=== PATIENT | male | born 1935 | race Caucasian/White ===

== ENCOUNTER → 2017-04-21 | Outpatient (CLI) | payer MEDICARE, OTHER ==
--- NOTE | 2017-04-22 10:39 | RADIOLOGY REPORT (SQ) ---
EXAM DESCRIPTION: PET CT LIMITED COMPLETED DATE/TIME: 04/21/2017 7:12 pm REASON FOR STUDY: SOLITARY PULMONARY NODULE R91.1 SOLITARY PULMONARY NODULE COMPARISON: Report from CT chest [facility] 03/28/2017, 08/21/2016 RADIONUCLIDE AND DOSE: 10.9 mCi F18 FDG The route of agent administration: Intravenous FASTING BLOOD SUGAR: 81 mg/dl CONTRAST TYPE AND DOSE: No CT contrast given. TECHNIQUE: Blood glucose level was verified. Above dose of FDG was injected intravenously. 2-D seg mented attenuation correction images were obtained from the base of the skull to the midthighs. Nonc ontrast CT images were obtained for attenuation correction and fusion with emission images. CT image s were performed without oral or intravenous contrast and are not sensitive for parenchymal lesions. A series of overlapping emission PET images were obtained. Images reviewed and manipulated at [facility] work station by the radiologist. Images stored on PACS. LIMITATIONS: None. FINDINGS: HEAD AND NECK: No areas of abnormal metabolic activity in the soft tissues of the head and neck. A non metabolic 3 cm left lower pole thyroid nodule is present CHEST: In the anterior mediastinum, non metabolic tissue is present measuring 3 cm transverse by 1.7 cm AP. This may represent residual thymus tissue. There is bandlike scarring or atelectasis in the right lower lobe, non metabolic. There is an 8 mm left hilar lymph node on axial image 92 with SUV 2.7, nonspecific. No endobronchial or endotracheal lesions are identified. ABDOMEN AND PELVIS: No areas of abnormal metabolic activity in the abdomen or pelvis. Expected physi ologic activity is present in the genitourinary system and bowel. PROXIMAL LOWER EXTREMITIES: No areas of abnormal metabolic activity in the soft tissues of the lower extremities. BONES: No abnormal metabolic activity in the visualized skeleton. ADDITIONAL CT FINDINGS: Obstructive lung disease. Ascending aorta 5.5 cm in diameter, correlate for aortic stenosis or insufficiency. Coronary artery calcifications. Mild to moderate cardiomegaly. R etrocardiac hiatal hernia. Multiple bilateral renal cortical cysts are present, the largest is 5 cm diameter upper pole right kidney. Mild diffuse degenerative changes in the spine OTHER: Liver background activity 2.3 SUV. Blood pool background activity 1.7 SUV. IMPRESSION: No hypermetabolic lesions worrisome for primary lung neoplasm or metastatic disease TECHNICAL DOCUMENTATION: JOB ID: [id number]- All Rights Reserved
== END ==
LOC: RAD 15:31
PROVIDERS: ATTEND Internal Medicine Critical Care Medicine
DX: C34.31 Malignant neoplasm of lower lobe, right bronchus or lung (principal)
CPT/HCPCS: 78814; A9552

== ENCOUNTER → 2017-06-05 | Outpatient (CLI) | payer MEDICARE, OTHER ==
[2017-06-05 12:54] LABS: ABSOLUTE BASOPHILS # (AUTO) 0.1 10^3/uL (0.0-0.2); ABSOLUTE EOSINOPHILS # (AUTO) 0.4 10^3/uL (0.0-0.6); ABSOLUTE MONOCYTES (AUTO) 0.3 10^3/uL (0.1-1.4); ABSOLUTE NEUT (AUTO) 4.6 10^3/uL (1.7-8.2); BASOPHILS % (AUTO) 0.8 % (0-2); EOSINOPHILS % (AUTO) 5.7 % (0-6); HEMATOCRIT 40.4 % (37.9-51.0); LYMPHOCYTES % (AUTO) 16.2 % (13-45); MEAN CORPUSCULAR HEMOGLOBIN 30.6 pg (27.0-33.4); MEAN CORPUSCULAR HGB CONC 34.7 g/dL (32.0-36.0); MEAN CORPUSCULAR VOLUME 88 fl (80-97); MONOCYTES % (AUTO) 5.4 % (3-13); PLATELET COUNT 236 10^3/uL (150-450); RED BLOOD COUNT 4.59 10^6/uL (4.35-5.55); RED CELL DISTRIBUTION WIDTH 14.3 % (11.5-14.0); SEGMENTED NEUTROPHILS % (AUTO) 71.9 % (42-78); TOTAL CELLS COUNTED % (AUTO) 100 %; WHITE BLOOD COUNT 6.4 10^3/uL (4.0-10.5)
[2017-06-05 12:57] LABS: APPEARANCE,URINE CLEAR; BILIRUBIN,URINE NEGATIVE (NEGATIVE); COLOR,URINE YELLOW; GLUCOSE, URINE NEGATIVE (NEGATIVE); KETONES,URINE NEGATIVE (NEGATIVE); LEUKOCYTE ESTERASE,URINE NEGATIVE (NEGATIVE); NITRITE,URINE NEGATIVE (NEGATIVE); PROTEIN,URINE 30 mg/dL (NEGATIVE); URINE SPECIFIC GRAVITY 1.013; UROBILINOGEN,URINE NEGATIVE mg/dL (<2.0)
[2017-06-05 13:15] LABS: ALANINE AMINOTRANSFERASE 20 U/L (21-72); ALBUMIN 3.6 g/dL (3.5-5.0); ALKALINE PHOSPHATASE 94 U/L (38-126); ANION GAP 10 (5-19); ASPARTATE AMINO TRANSFERASE 27 U/L (17-59); BILIRUBIN,DIRECT 0.3 mg/dL (0.0-0.4); BILIRUBIN,TOTAL 0.9 mg/dL (0.2-1.3); BLOOD UREA NITROGEN 25 mg/dL (7-20); CALCIUM 9.9 mg/dL (8.4-10.2); CARBON DIOXIDE 26 mmol/L (22-30); CHLORIDE 103 mmol/L (98-107); GLUCOSE 121 mg/dL (75-110); POTASSIUM 4.1 mmol/L (3.6-5.0); SODIUM 139.4 mmol/L (137-145); TOTAL PROTEIN 5.7 g/dL (6.3-8.2)
== END ==
LOC: OD 11:32
PROVIDERS: ATTEND Internal Medicine Nephrology
DX: I12.9 Hypertensive chronic kidney disease with stage 1 through stage 4 chronic kidney disease, or unspecified chronic kidney disease (principal); N18.3 Chronic kidney disease, stage 3 (moderate)
CPT/HCPCS: 36415; 80053; 81001; 85025

== ENCOUNTER → 2017-09-30 | Outpatient (CLI) | payer MEDICARE, OTHER ==
[2017-09-30 13:33] LABS: HEMATOCRIT 38.5 % (37.9-51.0); HEMOGLOBIN 13.4 g/dL (13.5-17.0); MEAN CORPUSCULAR HEMOGLOBIN 31.9 pg (27.0-33.4); MEAN CORPUSCULAR HGB CONC 34.9 g/dL (32.0-36.0); MEAN CORPUSCULAR VOLUME 92 fl (80-97); PLATELET COUNT 359 10^3/uL (150-450); RED BLOOD COUNT 4.21 10^6/uL (4.35-5.55); RED CELL DISTRIBUTION WIDTH 15.4 % (11.5-14.0); WHITE BLOOD COUNT 6.2 10^3/uL (4.0-10.5)
[2017-09-30 13:47] LABS: APPEARANCE,URINE CLOUDY; BILIRUBIN,URINE NEGATIVE (NEGATIVE); COLOR,URINE YELLOW; GLUCOSE, URINE NEGATIVE (NEGATIVE); KETONES,URINE NEGATIVE (NEGATIVE); LEUKOCYTE ESTERASE,URINE LARGE (NEGATIVE); NITRITE,URINE NEGATIVE (NEGATIVE); PROTEIN,URINE 30 mg/dL (NEGATIVE); URINE SPECIFIC GRAVITY 1.014; UROBILINOGEN,URINE NEGATIVE mg/dL (<2.0)
[2017-09-30 13:54] LABS: ANION GAP 12 (5-19); BLOOD UREA NITROGEN 24 mg/dL (7-20); CALCIUM 9.9 mg/dL (8.4-10.2); CARBON DIOXIDE 27 mmol/L (22-30); CHLORIDE 102 mmol/L (98-107); GLUCOSE 118 mg/dL (75-110); POTASSIUM 4.9 mmol/L (3.6-5.0); SODIUM 140.7 mmol/L (137-145)
[2017-09-30 14:05] LABS: UR PRO/CREAT RATIO RESULT 0.4 mg/mg (0.0-0.2); URINE CREATININE 98.4 mg/dL (22-328); URINE PROTEIN 38.2 mg/dL (<12)
== END ==
LOC: OD 12:33
PROVIDERS: ATTEND Internal Medicine Nephrology
DX: I12.9 Hypertensive chronic kidney disease with stage 1 through stage 4 chronic kidney disease, or unspecified chronic kidney disease (principal); N18.3 Chronic kidney disease, stage 3 (moderate); R80.9 Proteinuria, unspecified; N39.0 Urinary tract infection, site not specified
CPT/HCPCS: 36415; 80048; 81001; 82570; 84156; 85027; 87086; 87088; 87186

== ENCOUNTER → 2018-04-08 | Outpatient (CLI) | payer MEDICARE, OTHER ==
[2018-04-08 13:58] LABS: APPEARANCE,URINE CLEAR; BILIRUBIN,URINE NEGATIVE (NEGATIVE); COLOR,URINE YELLOW; GLUCOSE, URINE NEGATIVE (NEGATIVE); KETONES,URINE NEGATIVE (NEGATIVE); LEUKOCYTE ESTERASE,URINE NEGATIVE (NEGATIVE); NITRITE,URINE NEGATIVE (NEGATIVE); PROTEIN,URINE 30 mg/dL (NEGATIVE); URINE SPECIFIC GRAVITY 1.016; UROBILINOGEN,URINE NEGATIVE mg/dL (<2.0)
[2018-04-08 14:05] LABS: HEMATOCRIT 39.2 % (37.9-51.0); HEMOGLOBIN 13.4 g/dL (13.5-17.0); MEAN CORPUSCULAR HGB CONC 34.1 g/dL (32.0-36.0); MEAN CORPUSCULAR VOLUME 88 fl (80-97); PLATELET COUNT 538 10^3/uL (150-450); RED BLOOD COUNT 4.45 10^6/uL (4.35-5.55); RED CELL DISTRIBUTION WIDTH 14.8 % (11.5-14.0); WHITE BLOOD COUNT 9.3 10^3/uL (4.0-10.5)
[2018-04-08 14:24] LABS: ANION GAP 10 (5-19); BLOOD UREA NITROGEN 22 mg/dL (7-20); CALCIUM 9.6 mg/dL (8.4-10.2); CARBON DIOXIDE 27 mmol/L (22-30); CHLORIDE 103 mmol/L (98-107); GLUCOSE 102 mg/dL (75-110); POTASSIUM 4.7 mmol/L (3.6-5.0); SODIUM 139.8 mmol/L (137-145)
[2018-04-08 14:28] LABS: UR PRO/CREAT RATIO RESULT 0.3 mg/mg (0.0-0.2); URINE CREATININE 102.1 mg/dL (22-328); URINE PROTEIN 27.3 mg/dL (<12)
== END ==
LOC: OD 13:05
PROVIDERS: ATTEND Internal Medicine Nephrology
DX: N18.3 Chronic kidney disease, stage 3 (moderate) (principal); R80.9 Proteinuria, unspecified; I12.9 Hypertensive chronic kidney disease with stage 1 through stage 4 chronic kidney disease, or unspecified chronic kidney disease
CPT/HCPCS: 36415; 80048; 81001; 82570; 84156; 85027

== ENCOUNTER → 2018-05-04 | Outpatient (CLI) | payer MEDICARE, OTHER ==
--- NOTE | 2018-05-05 09:48 | RADIOLOGY REPORT (SQ) ---
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 TECHNIQUE: Blood glucose level was verified. Above dose of FDG was injected intravenously. 2-D seg mented attenuation correction images were obtained through the entire body. Noncontrast CT images we re obtained for attenuation correction and fusion with emission images. CT images were performed wit hout oral or intravenous contrast and are not sensitive for parenchymal lesions. A series of overlap ping emission PET images were obtained. Images reviewed and manipulated at independent work station by the radiologist. Images stored on PACS. LIMITATIONS: None. FINDINGS: HEAD AND NECK: No areas of abnormal metabolic activity in the soft tissues of the head and neck. CHEST: There is bandlike airspace disease in both the right and left lower lobes, with SUV ranging fr om 1.4 to 1.5, below blood pool activity. This likely represents atelectasis. ABDOMEN AND PELVIS: No areas of abnormal metabolic activity in the abdomen or pelvis. Expected Physiologic activity is present in the genitourinary system and bowel. LOWER EXTREMITIES: No areas of abnormal metabolic activity in the soft tissues of the lower extremiti es. BONES: No abnormal metabolic activity in the visualized skeleton. ADDITIONAL CT FINDINGS: Diffuse atherosclerotic arterial vascular calcifications. Thoracic scoliosis . Tortuous thoracic aorta. Multiple bilateral renal cortical cysts. Small hiatal hernia. Right to silvia hip replacement OTHER: Liver background activity 2.2 SUV. Blood pool background activity 2.0 SUV IMPRESSION: No hypermetabolic lesions worrisome for recurrent bladder malignancy. Myeloma may not be hypermetabolic on PET-CT. TECHNICAL DOCUMENTATION: JOB ID: [id number]- All Rights Reserved Reading location - IP/workstation name: [email or web address]
== END ==
LOC: RAD 16:50
PROVIDERS: ATTEND Family Medicine
DX: C90.02 Multiple myeloma in relapse (principal)
CPT/HCPCS: 78816; A9552

== ENCOUNTER → 2018-08-13 | Outpatient (CLI) | payer MEDICARE, OTHER ==
--- NOTE | 2018-08-13 11:59 | WOMENS IMAGING REPORT ---
EXAM DESCRIPTION: BONE DENSITY HIP/SPINE COMPLETED DATE/TIME: 08/13/2018 10:57 am REASON FOR STUDY: M81.0 AGE-RELATED OSTEOPOROSIS WITHOUT CURRENT PATHOLOGICAL FRACTURE M81.0 AGE-RE LATED OSTEOPOROSIS W/O CURRENT PATHOLOGICAL FRAC COMPARISON: None. TECHNIQUE: Dual-Energy X-ray Absorptiometry (DEXA) of the AP Spine and Hip. LIMITATIONS: None. FINDINGS: LUMBAR SPINE: The bone mineral density (BMD) measured from L1-L4 in the AP projection correlates with a T-score of -1.4, which is osteopenia as defined by the World Health Organization. HIP: The bone mineral density (BMD) measured in the left hip correlates with a T-score of -2.9, which is o steoporosis as defined by the World Health Organization. IMPRESSION: 1. LUMBAR SPINE: OSTEOPENIA. 2. HIP: OSTEOPOROSIS. COMMENT: The World Health Organization defines low BMD as follows: T-score: Normal: Greater than -1.0 Osteopenia: Between -1.0 and -2.5 Osteoporosis: Less than -2.5 without fractures Established osteoporosis: Less than -2.5 with fractures In general, you may wish to consider: Diagnosis Treatment Follow-up DEXA Normal BMD Prevention 2-3 years Osteopenia Prevention/Therapy 1-2 years Osteoporosis Therapy Yearly TECHNICAL DOCUMENTATION: JOB ID: [id number] 1913 [employer]- All Rights Reserved Reading location - IP/workstation name: [email or web address]
== END ==
LOC: WI 10:28
PROVIDERS: ATTEND Internal Medicine Hematology & Oncology
DX: M81.0 Age-related osteoporosis without current pathological fracture (principal)
CPT/HCPCS: 77080

== ENCOUNTER → 2018-09-04 | Outpatient (CLI) | payer MEDICARE, OTHER ==
--- NOTE | 2018-09-05 09:53 | XCELERA REPORT ---
[address] [address] Lower Extremity Arterial Evaluation Name: SHAUNA TENA Age: 83 yrs Gender: Male : 1935 Patient Status: Outpatient Patient Location: RAD Study Date: 09/04/2018 03:12 PM Procedure: A color flow and duplex scan of the lower extremity arteries was performed on the right with velocity and waveform anaylsis. Reason For Study: RLE LEG PAIN Ordering Physician: MICHELLE ROBB Performed By: Stanislaw Barajas Measurements and Calculations Right Left FILLER MACHINE OPERATOR PSV 74.4 cm/sec Prox PFA PSV -90.4 cm/sec Prox SFA PSV 63.3 cm/sec Mid SFA PSV -51.9 cm/sec Dist SFA PSV -45.5 cm/sec Prox Pop A PSV 23.4 cm/sec Dist Pop A PSV -45.1 cm/sec Prox ANAYELI PSV -8.8 cm/sec Mid ANAYELI PSV -10.0 cm/sec Prox SYSTEM SALES CONSULTANT PSV 24.6 cm/sec Dist SYSTEM SALES CONSULTANT PSV 21.6 cm/sec Mid Maliha A PSV 15.3 cm/sec Dist Maliha A 13.2 cm/sec PSV Francisco Pedis PSV 9.4 cm/sec Right Side Arterial Evaluation Most remarkably there is free floating echogenic material in the Popliteal artery, occupying most of the lumen. The lucero exhibit calcification. No aneurysm. Normal velocity and triphasic waveforms noted from the Common Femoral artery to the Popliteal artery. . Monophasic phasic with low velocity in the Posterior Tibial artery. Retrograde with trickle, flow in the Anterior Tibial . Ankle Brachial index not obtained due to inability to tolerate. Critical Findings Called [phone], no answer, called patient's , who gave number for case nurse, [phone]. Called spoke to Selina. Gave my cell phone for Dr Robb to call me directly.[phone] hours,. Interpretation Summary Severe hemodynamically significant lesions in the right lower extremity only, on duplex imaging, at rest. 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 : MICHELLE ROBB > Jean Paul Nevarez
== END ==
LOC: RAD 14:54
PROVIDERS: ATTEND Internal Medicine Clinical Cardiac Electrophysiology
DX: I73.9 Peripheral vascular disease, unspecified (principal); M79.604 Pain in right leg
CPT/HCPCS: 93926

== ENCOUNTER → 2018-10-17 | Outpatient (CLI) | payer MEDICARE, OTHER ==
[2018-10-17 11:57] LABS: ABSOLUTE EOSINOPHILS # (AUTO) 0.1 10^3/uL (0.0-0.6); ABSOLUTE LYMPHOCYTES (AUTO) 1.1 10^3/uL (0.5-4.7); ABSOLUTE MONOCYTES (AUTO) 0.4 10^3/uL (0.1-1.4); BASOPHILS % (AUTO) 0.8 % (0-2); EOSINOPHILS % (AUTO) 2.4 % (0-6); HEMATOCRIT 32.5 % (37.9-51.0); LYMPHOCYTES % (AUTO) 19.2 % (13-45); MEAN CORPUSCULAR HEMOGLOBIN 31.8 pg (27.0-33.4); MEAN CORPUSCULAR HGB CONC 33.8 g/dL (32.0-36.0); MEAN CORPUSCULAR VOLUME 94 fl (80-97); MONOCYTES % (AUTO) 6.8 % (3-13); PLATELET COUNT 390 10^3/uL (150-450); RED BLOOD COUNT 3.45 10^6/uL (4.35-5.55); RED CELL DISTRIBUTION WIDTH 20.9 % (11.5-14.0); SEGMENTED NEUTROPHILS % (AUTO) 70.8 % (42-78); TOTAL CELLS COUNTED % (AUTO) 100 %; WHITE BLOOD COUNT 5.7 10^3/uL (4.0-10.5)
[2018-10-17 11:58] LABS: APPEARANCE,URINE CLEAR; BILIRUBIN,URINE NEGATIVE (NEGATIVE); COLOR,URINE STRAW; GLUCOSE, URINE NEGATIVE (NEGATIVE); KETONES,URINE NEGATIVE (NEGATIVE); LEUKOCYTE ESTERASE,URINE NEGATIVE (NEGATIVE); NITRITE,URINE NEGATIVE (NEGATIVE); PROTEIN,URINE NEGATIVE (NEGATIVE); URINE SPECIFIC GRAVITY 1.009; UROBILINOGEN,URINE NEGATIVE mg/dL (<2.0)
[2018-10-17 12:15] LABS: ALANINE AMINOTRANSFERASE 24 U/L (21-72); ALBUMIN 3.3 g/dL (3.5-5.0); ALKALINE PHOSPHATASE 75 U/L (38-126); ANION GAP 8 (5-19); ASPARTATE AMINO TRANSFERASE 37 U/L (17-59); BILIRUBIN,DIRECT 0.4 mg/dL (0.0-0.4); BILIRUBIN,TOTAL 0.5 mg/dL (0.2-1.3); BLOOD UREA NITROGEN 31 mg/dL (7-20); CALCIUM 9.5 mg/dL (8.4-10.2); CARBON DIOXIDE 27 mmol/L (22-30); CHLORIDE 105 mmol/L (98-107); GLUCOSE 92 mg/dL (75-110); POTASSIUM 4.9 mmol/L (3.6-5.0); TOTAL PROTEIN 5.3 g/dL (6.3-8.2)
== END ==
LOC: OD 11:08
PROVIDERS: ATTEND Internal Medicine Nephrology
DX: I12.9 Hypertensive chronic kidney disease with stage 1 through stage 4 chronic kidney disease, or unspecified chronic kidney disease (principal); N18.3 Chronic kidney disease, stage 3 (moderate); R80.9 Proteinuria, unspecified
CPT/HCPCS: 36415; 80053; 81001; 85025

== ENCOUNTER → 2019-06-12 | Outpatient (CLI) | payer MEDICARE, OTHER ==
[2019-06-12 13:15] LABS: ABSOLUTE BASOPHILS # (AUTO) 0.1 10^3/uL (0.0-0.2); ABSOLUTE EOSINOPHILS # (AUTO) 0.5 10^3/uL (0.0-0.6); ABSOLUTE LYMPHOCYTES (AUTO) 1.2 10^3/uL (0.5-4.7); ABSOLUTE MONOCYTES (AUTO) 0.7 10^3/uL (0.1-1.4); BASOPHILS % (AUTO) 1.3 % (0-2); EOSINOPHILS % (AUTO) 6.7 % (0-6); HEMATOCRIT 34.2 % (37.9-51.0); LYMPHOCYTES % (AUTO) 16.2 % (13-45); MEAN CORPUSCULAR HEMOGLOBIN 34.1 pg (27.0-33.4); MEAN CORPUSCULAR HGB CONC 35.2 g/dL (32.0-36.0); MEAN CORPUSCULAR VOLUME 97 fl (80-97); MONOCYTES % (AUTO) 9.4 % (3-13); PLATELET COUNT 651 10^3/uL (150-450); RED BLOOD COUNT 3.54 10^6/uL (4.35-5.55); RED CELL DISTRIBUTION WIDTH 23.5 % (11.5-14.0); SEGMENTED NEUTROPHILS % (AUTO) 66.4 % (42-78); TOTAL CELLS COUNTED % (AUTO) 100 %; WHITE BLOOD COUNT 7.6 10^3/uL (4.0-10.5)
[2019-06-12 13:30] LABS: ALBUMIN 3.6 g/dL (3.5-5.0); ALKALINE PHOSPHATASE 97 U/L (38-126); ANION GAP 6 (5-19); ASPARTATE AMINO TRANSFERASE 47 U/L (17-59); BILIRUBIN,DIRECT 0.1 mg/dL (0.0-0.4); BILIRUBIN,TOTAL 0.5 mg/dL (0.2-1.3); BLOOD UREA NITROGEN 20 mg/dL (7-20); CALCIUM 10.2 mg/dL (8.4-10.2); CARBON DIOXIDE 27 mmol/L (22-30); CHLORIDE 106 mmol/L (98-107); GLUCOSE 108 mg/dL (75-110); PHOSPHORUS 4.4 mg/dL (2.5-4.5); POTASSIUM 4.9 mmol/L (3.6-5.0)
[2019-06-12 13:35] LABS: ALBUMIN 3.6 g/dL (3.5-5.0); ALKALINE PHOSPHATASE 97 U/L (38-126); ANION GAP 6 (5-19); ASPARTATE AMINO TRANSFERASE 47 U/L (17-59); BILIRUBIN,DIRECT 0.1 mg/dL (0.0-0.4); BILIRUBIN,TOTAL 0.5 mg/dL (0.2-1.3); BLOOD UREA NITROGEN 20 mg/dL (7-20); CALCIUM 10.2 mg/dL (8.4-10.2); CARBON DIOXIDE 27 mmol/L (22-30); CHLORIDE 106 mmol/L (98-107); GLUCOSE 108 mg/dL (75-110); POTASSIUM 4.9 mmol/L (3.6-5.0)
[2019-06-12 13:43] LABS: ANISOCYTOSIS 3+; BURR CELLS SLIGHT; POIKILOCYTOSIS 1+
[2019-06-12 13:44] LABS: OVALOCYTES 1+; PLATELET COMMENT INCREASED; SCHISTOCYTES 1+
[2019-06-12 13:45] LABS: ABSOLUTE BASOPHILS # (AUTO) 0.1 10^3/uL (0.0-0.2); ABSOLUTE EOSINOPHILS # (AUTO) 0.5 10^3/uL (0.0-0.6); ABSOLUTE LYMPHOCYTES (AUTO) 1.2 10^3/uL (0.5-4.7); ABSOLUTE MONOCYTES (AUTO) 0.7 10^3/uL (0.1-1.4); BASOPHILS % (AUTO) 1.3 % (0-2); EOSINOPHILS % (AUTO) 6.7 % (0-6); HEMATOCRIT 34.2 % (37.9-51.0); LYMPHOCYTES % (AUTO) 16.2 % (13-45); MEAN CORPUSCULAR HEMOGLOBIN 34.1 pg (27.0-33.4); MEAN CORPUSCULAR HGB CONC 35.2 g/dL (32.0-36.0); MEAN CORPUSCULAR VOLUME 97 fl (80-97); MONOCYTES % (AUTO) 9.4 % (3-13); PLATELET COUNT 651 10^3/uL (150-450); RED BLOOD COUNT 3.54 10^6/uL (4.35-5.55); RED CELL DISTRIBUTION WIDTH 23.5 % (11.5-14.0); SEGMENTED NEUTROPHILS % (AUTO) 66.4 % (42-78); TOTAL CELLS COUNTED % (AUTO) 100 %; WHITE BLOOD COUNT 7.6 10^3/uL (4.0-10.5)
[2019-06-12 13:47] LABS: ANISOCYTOSIS 3+; BURR CELLS SLIGHT; OVALOCYTES 1+; PLATELET COMMENT INCREASED; POIKILOCYTOSIS 1+; SCHISTOCYTES 1+
== END ==
LOC: OD 12:44
PROVIDERS: ATTEND Internal Medicine Nephrology
DX: I12.9 Hypertensive chronic kidney disease with stage 1 through stage 4 chronic kidney disease, or unspecified chronic kidney disease (principal); N18.3 Chronic kidney disease, stage 3 (moderate); R80.9 Proteinuria, unspecified; Q61.2 Polycystic kidney, adult type; D47.1 Chronic myeloproliferative disease; D47.3 Essential (hemorrhagic) thrombocythemia
CPT/HCPCS: 36415; 80053; 83970; 84100; 85025; 87070